=== PATIENT | female | born 2000 | race Two or more races ===

== ENCOUNTER 2023-05-21 12:52 | Emergency (ER) | payer OTHER ==
[~2023-05-21] VITALS: Ht 157.5 cm; Wt 68.0 kg
== END 2023-05-21 16:00 | disposition home or self-care (01) ==
LOC: ER 12:53
DX: R07.89 Other chest pain (principal); E11.9 Type 2 diabetes mellitus without complications; I10 Essential (primary) hypertension

== ENCOUNTER 2023-06-24 08:40 | Emergency (ER) | payer OTHER ==
[~2023-06-24] VITALS: Ht 157.5 cm; Wt 63.5 kg
[2023-06-24] MEDS ORDERED: DIPHENHYDRAMINE HCL 50 MG/ML VIAL 1ML IM STA (09:41)
[2023-06-24] MEDS ORDERED: DEXAMETHASONE SODIUM PHOSPHATE 4 MG/ML VIAL IM STA (09:41)
== END 2023-06-24 09:59 | disposition home or self-care (01) ==
LOC: ER 08:40
DX: T78.49XA Other allergy, initial encounter (principal); X58.XXXA Exposure to other specified factors, initial encounter